=== PATIENT | female | born 2000 | race African-American/Black ===

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

== ENCOUNTER → 2019-05-26 | Outpatient (REF) | payer OTHER ==
[2019-05-26 13:36] LABS: HEMATOCRIT 38.6 % (36.0-47.0); HEMOGLOBIN 12.5 g/dl (12.0-15.5); MEAN CORPUSCULAR HGB CONC 32.4 g/dl (32.0-36.5); MEAN CORPUSCULAR VOLUME 86.4 fl (80.0-96.0); PLATELET COUNT, AUTOMATED 242 10^3/uL (150-450); RED BLOOD COUNT 4.47 10^6/uL (4.00-5.40); WHITE BLOOD COUNT 8.8 10^3/uL (4.0-10.0)
[2019-05-26 14:16] LABS: HCG, SERUM QUANTITATIVE 57394 MIU/ML
[2019-05-27 11:18] LABS: RUBELLA IgG QUALITATIVE IMMUNE (IMMUNE)
[2019-05-27 11:47] LABS: HEPATITIS C VIRUS ABY INDEX < 0.0 INDEX (<0.8); HIV 1&2 SCREEN CENTAUR NEGATIVE (NEGATIVE)
[2019-05-30 08:57] LABS: HEMOGLOBIN A 97.8 % (96.4-98.8); HEMOGLOBIN A2 2.2 % (1.8-3.2); HGB SOLUBILITY Negative (Negative)
== END ==
LOC: M LAB REF 12:22
PROVIDERS: ATTEND Obstetrics & Gynecology
DX: O36.80X0 Pregnancy with inconclusive fetal viability, not applicable or unspecified (principal)

== ENCOUNTER → 2019-08-04 | Outpatient (CLI) | payer OTHER | LOC: M LABSMTC 09:57 | PROVIDERS: ATTEND Family Medicine | DX: Z11.59 Encounter for screening for other viral diseases (principal); Z20.828 Contact with and (suspected) exposure to other viral communicable diseases ==

== ENCOUNTER → 2019-08-29 | Outpatient (CLI) | payer OTHER ==
[2019-08-29 10:59] LABS: HEMATOCRIT 33.1 % (36.0-47.0); HEMOGLOBIN 11.1 g/dl (12.0-15.5); MEAN CORPUSCULAR HEMOGLOBIN 28.8 pg (27.0-33.0); MEAN CORPUSCULAR HGB CONC 33.5 g/dl (32.0-36.5); PLATELET COUNT, AUTOMATED 263 10^3/uL (150-450); RED BLOOD COUNT 3.85 10^6/uL (4.00-5.40); WHITE BLOOD COUNT 12.2 10^3/uL (4.0-10.0)
== END ==
LOC: M LAB 09:22
PROVIDERS: ATTEND Obstetrics & Gynecology
DX: Z34.82 Encounter for supervision of other normal pregnancy, second trimester (principal)

== ENCOUNTER 2019-10-12 16:54 | Outpatient (CLI) | payer OTHER ==
[~2019-10-12] VITALS: Ht 167.6 cm; Wt 75.0 kg
[2019-10-12 17:25] VITALS: BP 113/68
== END 2019-10-12 18:38 ==
LOC: M LDO 16:54
PROVIDERS: ATTEND Obstetrics & Gynecology
DX: O26.893 Other specified pregnancy related conditions, third trimester (principal); Z3A.34 34 weeks gestation of pregnancy

== ENCOUNTER → 2019-10-20 | Outpatient (REF) | payer OTHER | LOC: M LAB REF 11:58 | PROVIDERS: ATTEND Obstetrics & Gynecology | DX: Z34.83 Encounter for supervision of other normal pregnancy, third trimester (principal) ==

== ENCOUNTER 2019-11-05 05:52 | Inpatient (IN) | payer OTHER ==
[2019-11-05] VITALS (49 sets, daily range): BP systolic 110–142; BP diastolic 56–91
[~2019-11-05] VITALS: Ht 167.6 cm; Wt 78.3 kg
[2019-11-05] MEDS ORDERED: LACTATED RINGER'S 1000 ML IV STA (06:32)
--- NOTE | 2019-11-05 06:45 | HPEPDOC ---
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 Past Medical History Surgical History: Other (adenoidectomy) Family History Significant Family History: Cancer Social History Marital Status: Single Family situation: Spouse/partner home Psychosocial History: No pertinent psych hx * Smoker: non-smoker Alcohol: Denies Drugs: denies Abuse Violence Screening Have you been hit/kicked/slapp: No Have you been sexually assault: No Allergies Coded Allergies: Penicillins (Verified Allergy, Severe, throat swells, 11/05/19) amoxicillin (Verified Allergy, Severe, throat swells, 11/05/19) clavulanic acid (Verified Allergy, Intermediate, hives, 11/05/19) Hollis Nut (Verified Allergy, Mild, tongue goes numb, 11/05/19) Crayfish (Verified Allergy, Mild, tongue numb, 11/05/19) Uncoded Allergies: NKDA (Allergy, Unknown, 11/07/02) Physical Examination Physical Examination GENERAL: Alert and oriented times three. BREAST: . ABDOMEN: Gravid and non-tender to touch. FETUS: Is vertex (VTX) by sterile vaginal examination (SVE), fetus is vertex (VTX) by Guero. EFW 7# HEART RATE: Regular rate and rhythm. LUNGS: Clear to auscultation (CTA). EXTREMITIES: No edema. No clonus. Deep tendon reflexes (DTRs) + 2 Vital Signs/I&O Vital Signs Date Time Temp Pulse Resp B/P (MAP) Pulse Ox O2 Delivery O2 Flow Rate FiO2 11/05/19 06:14 97.5 90 18 121/59 (79) 98 Pertinent Laboratoy Data Blood Type: O+ RBC Antibody Screen: Negative HIV: Negative Hepatitis B: Negative Hepatitis C: Negative Rapid Plasma Reagin: Nonreactive Rubella: Immune Chlamydia/Gonorrhea: Negative Group B Streptococcus: Negative Quad Screen Test: Unknown Glucose Tolerance Test: 111 Anatomy Ultrasound Ultrasound Date: Jun 29, 2019 Placenta Location: Right Lateral Normal Anatomy: Yes (small left choroid plexus cyst) Placenta Previa: No Estimated Weight (grams): 315 (46%) Other Ultrasounds 06/08/2019 dating 16w6d 11/17/2019 Steroid Therapy Steroid Therapy: No Vaginal Examination Dilation: 3 cm Effacement: 80% Station: -1 Cervical Consistency: Medium Cervical Position: Posterior Presentation: Cephalic presentation Assessment Heart Rate (FHR): 145 Variability: Moderate Accelerations: Positive Decelerations: None Tocometer Contractions: Yes Strength: palpated as mild Assessment/Plan Assessment Khadra is a 19-year-old (G)4 para (P)0-0-3-0 at 38+2 weeks by 16-week ultrasound. Presents to Labor and Delivery (L&D) with reports of loss of clear fluid 0420 with onset contractions thereafter. Denies bleeding, only light show. Reports good movement. Plan Admit and orient. 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 Diet: Clear liquids. Group B Streptococcus (GBS) negative. Labs and intravenous (IV) per unit protocol. Counseled on Pitocin and induction of labor (IOL). Lactated Ringers (LR): Bolus 500 mL, then at 125 mL/hr. Planning epidural for labor coping Anticipate normal spontaneous delivery (). C-S as appropriate. Leatha Can CNM Nov 05, 2019 06:45
[2019-11-05 07:03] LABS: HEMOGLOBIN 10.9 g/dl (12.0-15.5); MEAN CORPUSCULAR HGB CONC 32.1 g/dl (32.0-36.5); MEAN CORPUSCULAR VOLUME 84.4 fl (80.0-96.0); PLATELET COUNT, AUTOMATED 268 10^3/uL (150-450); RED BLOOD COUNT 4.03 10^6/uL (4.00-5.40); WHITE BLOOD COUNT 10.4 10^3/uL (4.0-10.0)
[2019-11-05] MEDS ORDERED: FENTANYL 2MCG/ML ROPIVACAINE 0.2% IN 0.9% NACL 100ML IVBAG As Ordered ONE (08:31)
[2019-11-05] MEDS ORDERED: OXYTOCIN 30 UNITS IN 0.9% NaCl 500ML IV BAG (J2590) As Ordered ONE (08:32)
[2019-11-05] MEDS: LR 1,000 ML IV SCH ×2 (08:39→14:35)
[2019-11-05] MEDS ORDERED: REFRIGERATOR IV KEYS XX PRN (10:00)
[2019-11-05] MEDS ORDERED: NALOXONE INJ 0.4MG/1ML VIAL (J2310 PER 1MG) IV PRN (10:00)
[2019-11-05] MEDS ORDERED: LACTATED RINGER'S 1000 ML IV PRN (10:00)
[2019-11-05] MEDS ORDERED: EPIDURAL/PCA KEYS XX PRN (10:00)
[2019-11-05] MEDS ORDERED: ONDANSETRON 4MG/2ML VIAL IV PRN ×2 (10:00→20:00)
[2019-11-05] MEDS ORDERED: ePHEDrine SULFATE 25 MG/5 ML(5MG/ML) SYRINGE IV PRN (10:00)
[2019-11-05] MEDS ORDERED: EPIDURAL COMMENT XX SCH (10:00)
[2019-11-05] MEDS ORDERED: diphenhydrAMINE 50MG/ML VIAL (J1200) IV PRN (10:00)
[2019-11-05] MEDS: FENTANYL/ROPIVACAINE/NACL BAG 100 ML EPIDURAL SCH ×2 (10:23→17:29)
[2019-11-05] MEDS ORDERED: OXYTOCIN DRIP 30 UNITS in IV 1 EA IV SCH (10:45)
[2019-11-05] MEDS ORDERED: DIBUCAINE 1% OINTMENT 30GM TOP PRN (20:00)
[2019-11-05] MEDS ORDERED: MEASLES,MUMPS,RUBELLA VACCINE INJ (MMR-II) (90707) SC SCH (20:00)
[2019-11-05] MEDS ORDERED: OXYTOCIN DRIP 30 UNITS in IV 1 EA IV ONE (20:00)
[2019-11-05] MEDS ORDERED: RHOGAM 300 MCG (1500 IU) INJ (J2790) IM SCH (20:00)
[2019-11-05] MEDS ORDERED: DOCUSATE SODIUM 100 MG CAP PO PRN (20:00)
[2019-11-05] MEDS ORDERED: METHYLERGONOVINE MALEATE 0.2 MG TAB PO PRN (20:00)
[2019-11-05] MEDS ORDERED: IBUPROFEN 600MG TAB PO PRN (20:00)
[2019-11-05] MEDS ORDERED: ACETAMINOPHEN TAB 650MG DOSE (2X325MG) PO PRN (20:00)
[2019-11-05] MEDS: IBUPROFEN 800 MG TAB PO PRN (20:22)
[2019-11-06] MEDS: ACETAMINOPHEN 500 MG TAB PO PRN ×2 (03:26→15:31)
[2019-11-06 06:00] VITALS: BP 103/52
[2019-11-06] MEDS: IBUPROFEN 800 MG TAB PO PRN ×2 (08:00→17:33)
[2019-11-06] MEDS: PRENATAL VITAMINS CHEWABLE TABLET PO SCH (08:00)
[2019-11-07 06:00] VITALS: BP 119/60
[2019-11-07] MEDS: PRENATAL VITAMINS CHEWABLE TABLET PO SCH (08:41)
[2019-11-07] MEDS ORDERED: ACET-683 PO (09:24)
[2019-11-07] MEDS ORDERED: IBUP80TA PO (09:24)
--- NOTE | 2019-11-15 15:49 | DN ---
DATE OF DELIVERY: 11/05/2019 PREDELIVERY DIAGNOSIS: 38-3/7 weeks, labor. POSTDELIVERY DIAGNOSIS: Delivered. PROCEDURE: Spontaneous vaginal delivery. LEAD NETWORK ARCHITECT: Charles De Los Santos MD ANESTHESIA: Epidural. ESTIMATED BLOOD LOSS: 300 mL. FINDINGS: 5 pound 13 ounce male . scores 7 and 9. DELIVERY SUMMARY: After a 30 minute second stage, patient had spontaneous delivery of a 5 pound 13 ounce male , scores 7 and 9 under epidural anesthesia. Nuchal cord times two was reduced manually. The shoulders delivered with ease. The cried quickly. The cord was doubly clamped and cut. The placenta delivered spontaneously and appeared to be intact. The patient received IV Pitocin immediately after delivery of the placenta. A first-degree perineal laceration and first-degree left labial laceration were repaired with 2-0 chromic in the usual fashion. Sponge and needle counts were correct.
== END 2019-11-07 18:20 | disposition home or self-care (01) | DRG 560 ==
LOC: M LDO 05:52 → M LDI 06:49 → M OBS 21:21
PROVIDERS: ADMIT Advanced Practice Midwife; ATTEND Advanced Practice Midwife
PROC: 10E0XZZ Delivery of Products of Conception, External Approach (ICD-10-PCS; principal; 2019-11-05)
PROC: 0HQ9XZZ Repair Perineum Skin, External Approach (ICD-10-PCS; 2019-11-05)
DX: O69.81X0 Labor and delivery complicated by cord around neck, without compression, not applicable or unspecified (principal); Z3A.38 38 weeks gestation of pregnancy; Z37.0 Single live birth; O70.0 First degree perineal laceration during delivery

== ENCOUNTER → 2020-07-04 | Outpatient (REF) ==
[~2020-07-04] MED LIST: ACET-683 PO; IBUP80TA PO
== END ==
LOC: M LABSMTC 14:06
PROVIDERS: ATTEND Pediatrics
DX: Z20.822 Contact with and (suspected) exposure to COVID-19 (principal)